=== PATIENT | female | born 1955 | race Caucasian/White ===

== ENCOUNTER 2018-08-10 12:18 | Emergency (ER) | payer BC, MEDICAID ==
[~2018-08-10] VITALS: Ht 167.6 cm; Wt 93.0 kg
[~2018-08-10 12:18] MED LIST: LEVO100T5 PO; SERT100T PO; SUMA100T3 PO
[2018-08-10] MEDS ORDERED: SODIUM CHLORIDE FLUSH 10ML SYR IVF ONE (12:30)
[2018-08-10 13:03] LABS: BASOPHILS # (AUTO) 0.02 x10^3/uL (0-0.1); BASOPHILS % (AUTO) 0 % (0-1); EOSINOPHILS # (AUTO) 0.18 x10^3/uL (0-0.4); EOSINOPHILS % (AUTO) 4 % (1-7); LYMPHOCYTES # (AUTO) 1.63 x10^3/uL (1-3.4); LYMPHOCYTES % (AUTO) 33 % (22-44); MD NO; MEAN CORPUSCULAR HEMOGLOBIN 32.3 pg (27.0-34.8); MEAN CORPUSCULAR HGB CONC 33.4 g/dL (32.4-35.8); MEAN CORPUSCULAR VOLUME 96.6 fL (80-100); MEAN PLATELET VOLUME 8.1 fL (7.4-10.4); MONOCYTES % (AUTO) 10 % (2-9); NEUTROPHILS # (AUTO) 2.67 x10^3/uL (1.8-6.8); NEUTROPHILS % (AUTO) 53 % (42-75); PLATELET COUNT 200 x10^3/uL (130-400); RED BLOOD COUNT 4.87 x10^6/uL (3.82-5.3); RED CELL DISTRIBUTION WIDTH 12.6 % (9.6-15.2)
--- NOTE | 2018-08-10 13:05 | NUR ---
PRINT DECORATOR: PT TO ROOM FROM LOBBY, GAIT SLOW AND STEADY
[2018-08-10 13:14] LABS: ALBUMIN 3.5 g/dL (3.4-5.0); ANION GAP 6 mmol/L (5-15); CALCIUM 8.5 mg/dL (8.5-10.1); CHLORIDE 106 mmol/L (98-107); CREATININE 1.18 mg/dL (0.55-1.02)
[2018-08-10] MEDS ORDERED: DEXAMETHASONE 4 MG/ML, 1ML ONE ×2 (13:35→13:39)
[2018-08-10] MEDS ORDERED: DIPHENHYDRAMINE 50 MG/ML, 1ML ONE (13:35)
[2018-08-10] MEDS ORDERED: METOCLOPRAMIDE 5 MG/ML, 2ML ONE (13:35)
[2018-08-10] MEDS ORDERED: MORPHINE SULFATE 4 MG/ML, 1ML ONE (13:36)
--- NOTE | 2018-08-10 13:47 | NUR ---
[facility] VSS. MEDICATED PER APR.
[2018-08-10] MEDS ORDERED: ESOM20CA PO (13:54)
--- NOTE | 2018-08-10 13:55 | NUR ---
PT AMBULATORY TO ROOM. STATING SHE HAS HAD A MIGRAINE FOR THE PAST FEW DAYS THAT WON'T GO AWAY. PT STATES SHE RECIEVED BOTOX TO HELP IT A FEW DAYS AGO AND IT DIDN'T HELP. MD AT BEDSIDE TO UPDATE PT ON POC. NADN. VSS. CALL LIGHT IN REACH. PT RESTING ON GURNEY WITH LIGHTS OFF AND HER SUNGLASSES ON.
[2018-08-10] MEDS ORDERED: DIPHENHYDRAMINE 50 MG/ML, 1ML IVPush ONE (14:00)
[2018-08-10] MEDS ORDERED: METOCLOPRAMIDE 5 MG/ML, 2ML IVPush ONE (14:00)
[2018-08-10] MEDS ORDERED: DEXAMETHASONE 4 MG/ML, 1ML IVPush ONE (14:00)
[2018-08-10] MEDS ORDERED: MORPHINE SULFATE 4 MG/ML, 1ML IVPush ONE (14:00)
[2018-08-10 14:37] VITALS: BP 91/67
--- NOTE | 2018-08-10 14:37 | NUR ---
PT ASLEEP ON GURNEY AT THIS TIME. NADN. CALL LIGHT IN REACH.
== END 2018-08-10 15:25 | disposition home or self-care (01) ==
LOC: ED 14:43
DX: R51 Headache (principal); Z90.710 Acquired absence of both cervix and uterus
CPT/HCPCS: 36415; 80048; 82040; 85025; 96374; 96375; 99283; J1100; J1200; J2270; J2765

== ENCOUNTER 2018-08-28 09:15 | Emergency (ER) | payer MEDICAID ==
[~2018-08-28] VITALS: Ht 167.6 cm; Wt 92.6 kg
[2018-08-28 09:32] VITALS: BP 110/66
== END 2018-08-28 11:04 | disposition home or self-care (01) ==
LOC: ED 09:55
DX: H53.133 Sudden visual loss, bilateral (principal); K21.9 Gastro-esophageal reflux disease without esophagitis; E03.9 Hypothyroidism, unspecified; F32.9 Major depressive disorder, single episode, unspecified; F41.9 Anxiety disorder, unspecified; Z90.710 Acquired absence of both cervix and uterus
CPT/HCPCS: 99283